=== PATIENT | male | born 1965 | race Caucasian/White ===

== ENCOUNTER → 2019-03-23 12:49 | Outpatient (CLI) | payer OTHER, SELFPAY ==
[2019-03-23 13:06] LABS: Basophils # 0.1 K/mm3 (0-0.2); Eosinophils # 0.2 K/mm3 (0.0-0.4); Eosinophils % 2.4 % (0.1-12.0); Hemoglobin 14.6 g/dL (14.1-18.0); Lymphocytes # 1.7 K/mm3 (0.7-4.5); Lymphocytes % 21.8 % (10-50); Mean Corpuscular HGB Conc 32.4 g/dL (31.8-35.4); Mean Corpuscular Volume 89.4 fl (80-94); Mean Platelet Volume 8.6 fl (7.4-10.4); Monocytes # 0.4 K/mm3 (0.1-1.0); Monocytes % 5.2 % (1.7-9.3); Neutrophils # 5.5 K/mm3 (1.8-7.8); Neutrophils % 69.7 % (37.0-80.0); Platelet Count 255 K/mm3 (142-424); Red Blood Count 5.03 M/mm3 (4.60-6.20); Red Cell Distribution Width 12.8 % (11.5-17.5); White Blood Count 7.9 K/mm3 (4.8-10.8)
[2019-03-23 13:34] LABS: Anion Gap 10.5 mEq/L (5-15); Blood Urea Nitrogen 18 mg/dL (7-18); Calcium 9.3 mg/dL (8.5-10.1); Carbon Dioxide 28 mmol/L (21.0-32.0); Chloride 103 mmol/L (98-107); Creatinine,Serum 1.17 mg/dL (0.70-1.30); Estimated Glomerular Filt Rate 65 ml/min (>60); GFR (African American) 79 ML/MIN (>60); Glucose 106 mg/dL (74-106); Potassium 4.5 mmoL/L (3.5-5.1); Sodium 137 mmol/L (136-145)
== END ==
PROVIDERS: Visit Provider Orthopaedic Surgery
DX: Z01.818 Encounter for other preprocedural examination (principal); S62.309A Unspecified fracture of unspecified metacarpal bone, initial encounter for closed fracture
CPT/HCPCS: 36415; 80048; 85025

== ENCOUNTER → 2019-04-03 12:55 | Outpatient (CLI) | payer OTHER, SELFPAY ==
--- NOTE | 2019-04-03 13:02 | XR_ITS ---
XR hand LT min 3V HISTORY: ITS.REASON: Post op Hand sx ORDERING PHYSICIAN: Samira Foote MD PATIENT AGE: 53 years COMPARISON: 03/20/2019. FINDINGS: There is now compression plate with fixation screws traversing the distal fourth metacarpal shaft fracture. There is anatomic alignment of fracture fragments. A splint device is now present. The remainder of the left hand is unremarkable. Impression: Open reduction internal fixation of the fourth metacarpal fracture.
== END ==
PROVIDERS: Visit Provider Orthopaedic Surgery
DX: S62.325A Displaced fracture of shaft of fourth metacarpal bone, left hand, initial encounter for closed fracture (principal)
CPT/HCPCS: 73130

== ENCOUNTER → 2019-04-13 09:47 | Outpatient (CLI) | payer OTHER, SELFPAY ==
--- NOTE | 2019-04-13 09:58 | XR_ITS ---
XR hand LT min 3V HISTORY: Follow-up fracture/ORIF ITS.REASON: s/p hand fracture ORDERING PHYSICIAN: Samira Foote MD PATIENT AGE: 53 years COMPARISON: 04/03/2019 FINDINGS: Bone plate is present over the dorsal and distal aspect of the fourth metacarpal. There is good alignment. The spleen has been removed. There is some underlying callus formation. IMPRESSION: Healing fourth metacarpal fracture status post ORIF
== END ==
PROVIDERS: Visit Provider Orthopaedic Surgery
DX: S62.302A Unspecified fracture of third metacarpal bone, right hand, initial encounter for closed fracture (principal)
CPT/HCPCS: 73130

== ENCOUNTER → 2019-05-22 09:40 | Outpatient (CLI) | payer OTHER, SELFPAY ==
--- NOTE | 2019-05-22 09:43 | XR_ITS ---
PROCEDURE: XR HAND LT MIN 3V CLINICAL INDICATION: Metacarpal Fx Follow-up fracture/ORIF COMPARISON: Hand L from 03/20/2019 from 04/13/2019 FINDINGS: Status post ORIF 4th metacarpal fracture. There is a dorsal bone plate present with callus formation developing at the fracture site which is nondisplaced. There is minimal radial angulation of the distal fracture fragment. The joint spaces are well-preserved. No significant degenerative/arthritic changes. No erosive changes evident. Other findings:None. IMPRESSION: Healing 4th metacarpal fracture status post ORIF Dictated by: Kade Arzate MD 05/22/2019 10:21 Electronically signed by Kade Arzate MD in [place] 05/22/2019 10:21
== END ==
PROVIDERS: Visit Provider Orthopaedic Surgery
DX: S62.305A Unspecified fracture of fourth metacarpal bone, left hand, initial encounter for closed fracture (principal)
CPT/HCPCS: 73130

== ENCOUNTER 2021-11-08 09:43 | Emergency (ER) | payer OTHER, SELFPAY ==
--- NOTE | 2021-11-08 11:13 | HMH.EDUTC ---
[facility] Disposition Clinical Impression: Viral syndrome Sinusitis Qualifiers: Sinusitis location: unspecified location Chronicity: acute Recurrence: non-recurrent Qualified Code(s): J01.90 - Acute sinusitis, unspecified Disposition: Home, Self-Care Condition on Discharge: Good Instructions: DI for Sinusitis, DI for Viral Syndrome Additional Instructions: Drink plenty of fluids. Take tylenol or ibuprofen for pain or fever. Take the medications as directed. Follow up with your regular doctor. GO TO THE ER FOR ANY WORSENING SYMPTOMS Quarantine until you know the results of your covid-19 test. Notify your school or workplace of your results and follow their instructions regarding return to work/school. Prescriptions: Ondansetron [Zofran 4mg ODT] 4 mg PO Q8HP PRN #20 tab PRN Reason: Nausea Transmission Status: Received by [facility] Azithromycin [Z-Rudolph 250mg Tab*] 250 mg PO UD DOSE PK #6 tab Transmission Status: Received by [facility] Referrals: Shahbaz Ocampo MD [Primary Care Provider] - Forms: Work/School Release Time of Disposition: 12:26 Medical Decision Making - Medical Records Medical records reviewed: No: I reviewed the patient's medical records. - Sumit Inquiry Pt receiving controlled substance: No Vital Signs: 11/08/21 11:17 11/08/21 12:29 Temperature 98 F 98 F Temperature Source Oral Pulse Rate 70 Pulse Rate [Left] 70 Respiratory Rate 18 18 Blood Pressure 154/109 H Blood Pressure [Right Arm] 154/109 H Blood Pressure Mean [Right Arm] 124 02 Sat by Pulse Oximetry 97 - Lab Data Lab results reviewed: Yes: I reviewed the patient's lab results. [facility] HPI - General Stated complaint: fever, runny nose, congestion Time Seen by Provider: 11/08/21 11:13 - History of Present Illness Provider Complaint: He c/o sinus and chest congestion, sore throat and low grade fever for the past 2 days. - Related Data Previous Rx's Medication Instructions Recorded Azithromycin [Z-Rudolph 250mg Tab*] 250 mg PO UD DOSE PK #6 tab 11/08/21 Ondansetron [Zofran 4mg ODT] 4 mg PO Q8HP PRN #20 tab 11/08/21 Allergies Allergy/AdvReac Type Severity Reaction Status Date / Time No Known Allergies Allergy Verified 10/15/19 10:26 [facility] History - Hepatitis A Screen Attestation statement:: This patient has been screened for Hepatitis A risk factors. I have reviewed the patient's past medical history: Yes Medical History: Denies:: Cancer, Diabetes Mellitus Type 1, Diabetes Mellitus Type 2, Internal Pacemaker, MRSA, Seizures Other Medical History: Reports: Other. Denies: Blood Transfusion Reaction Other Surgeries: Yes: No Previous Surgery, Other. No: Pacemaker Amputation: No Fractures: No - Social History Smoking Status: Never smoker Tobacco Type: smokeless tobacco # Packs/Day (cigarettes): 0 Alcohol Intake: never Alcohol Intake Frequency:: other Substance Use Type: other Occupational Status: employed Housing: house Household Members: spouse Family Hx:: No significant family history ROS Obtained: Yes All systems reviewed & no additional complaints - Constitutional Constitutional: Reports as per HPI - Eyes Eyes: Denies eye discharge - ENT Ears, Nose, Mouth, and Throat: Reports as per HPI - Cardiovascular Cardiovascular: Denies chest pain - Respiratory Respiratory: Denies chest congestion, Reports cough, Denies wheezing Physical Exam - General General appearance: alert, in no apparent distress - Head Head exam: atraumatic, normocephalic, normal inspection - Eye Eye exam: Present: normal appearance, PERRL, EOMI - ENT ENT exam: Present: normal exam, normal oropharynx, mucous membranes moist, TM's normal bilaterally, normal external ear exam - Neck Neck exam: Present: normal inspection, full ROM, trachea midline. Absent: meningismus, lymphadenopathy - Chest Chest inspection: Present: normal ins
[2021-11-08 11:17] VITALS: BP 154/109; PULSE 70; RESP 18; TEMP 36.6; O2SAT 97; BMI 25.0
[2021-11-08 12:29] VITALS: BP 154/109; PULSE 70; RESP 18; TEMP 36.6
== END 2021-11-08 12:34 | disposition home or self-care (01) ==
PROVIDERS: Emergency Provider Nurse Practitioner Family; PCP Family Medicine
DX: J01.90 Acute sinusitis, unspecified (principal); B34.9 Viral infection, unspecified
CPT/HCPCS: 99212; C9803; G0463; U0003; U0005